=== PATIENT | female | born 1990 ===

== ENCOUNTER 2024-06-12 11:27 | Outpatient (CLI) | payer OTHER ==
[~2024-06-12 11:27] MED LIST: PRENATAL CAPLE1 EACH PO
== END 2024-06-12 11:31 | disposition home or self-care (01) ==
LOC: PRENATAL 11:27
PROVIDERS: ATTEND Obstetrics & Gynecology Maternal & Fetal Medicine
DX: O35.3XX0 Maternal care for (suspected) damage to fetus from viral disease in mother, not applicable or unspecified (principal); O44.00 Complete placenta previa NOS or without hemorrhage, unspecified trimester; O99.280 Endocrine, nutritional and metabolic diseases complicating pregnancy, unspecified trimester; Z3A.21 21 weeks gestation of pregnancy

== ENCOUNTER 2024-08-28 13:12 | Outpatient (CLI) | payer OTHER | END 2024-08-28 13:14 | disposition home or self-care (01) | LOC: PRENATAL 13:12 | PROVIDERS: ATTEND Obstetrics & Gynecology Maternal & Fetal Medicine | DX: O26.849 Uterine size-date discrepancy, unspecified trimester (principal); O36.8199 Decreased fetal movements, unspecified trimester, other fetus; O99.280 Endocrine, nutritional and metabolic diseases complicating pregnancy, unspecified trimester; Z3A.33 33 weeks gestation of pregnancy ==

== ENCOUNTER 2024-10-18 08:50 | Inpatient (IN) | payer OTHER ==
[~2024-10-18] VITALS: Ht 160 cm; Wt 71.7 kg
[2024-10-18 09:04] VITALS: BP 105/70
[2024-10-18] MEDS ORDERED: SYNTHROID75 MCG PO (10:13)
[2024-10-18] MEDS ORDERED: IRON240 MG PO (10:13)
[2024-10-18] MEDS ORDERED: RINGERS SOLUTION,LACTATED 1,000 ML IV SCH ×2 (10:15→23:15)
[2024-10-18 10:18] LABS: HEMATOCRIT 30.8 % (36.0-45.00); HEMOGLOBIN 11.2 g/dL (12.0-15.00); MEAN CELL VOLUME 88.6 fL (80.00-100.00); MEAN CORPUSCULAR HEMOGLOBIN 32.1 pg (27.00-32.0); MEAN CORPUSCULAR HGB CONC 36.2 g/dl (32.0-36.0); PLATELET COUNT 225 K/uL (150-450); RED BLOOD COUNT 3.48 M/uL (4.00-6.00); RED CELL DISTRIBUTION WIDTH 13.9 % (11.5-14.5)
[2024-10-18 10:22] LABS: PH,URINE 6.5 (5.0-8.0); URINE APPEARANCE Cloudy; URINE BILIRRUBIN Negative (NEGATIVE); URINE BLOOD Trace; URINE COLOR Yellow; URINE GLUCOSE Negative (NEGATIVE); URINE KETONE Negative (NEGATIVE); URINE LEUKOCYTE Small; URINE NITRATE Negative; URINE PROTEIN Negative (NEGATIVE); URINE UROBILINOGEN 0.2 E.U./dl
[2024-10-18 10:28] LABS: URINE BACTERIA 7790.4 uL (0.0-1933); URINE RBC 5.5 uL (0.0-20.8); URINE WBC 59.6 uL (0.0-23.2)
[2024-10-18] MEDS ORDERED: OXYTOCIN 20 UNITS/500ML RL PIGGYBAG IV SCH (10:30)
[2024-10-18 10:50] LABS: INR 0.97; PARTIAL THROMBOPLASTIN TIME 33.2 SECONDS (22.0-34.0); PROTHROMBIN TIME 10.6 SECONDS (9.0-11.5)
[2024-10-18 11:10] LABS: URINE CAST 0.88 uL (0.0-1.40); URINE EPITHELIAL CELLS > 201.7 uL (0.0-38.8)
[2024-10-18 11:27] VITALS: BP 92/60
[2024-10-18 15:13] VITALS: BP 114/57
[2024-10-18] MEDS ORDERED: MEPERIDINE HCL/PF 25 MG/ML VIAL IV STA (18:08)
[2024-10-18] MEDS ORDERED: PROMETHAZINE HCL 25 MG/ML AMPUL IV STA (18:08)
[2024-10-18 19:46] VITALS: BP 123/72
[2024-10-18] MEDS ORDERED: NALOXONE HCL 0.4 MG/ML AMPUL ONE (21:26)
[2024-10-18] MEDS ORDERED: NALOXONE HCL 0.4 MG/ML AMPUL IV ONE (21:30)
[2024-10-18] MEDS ORDERED: ERYTHROMYCIN BASE OPHT 1GM EACH TUBE OP ONE (21:34)
[2024-10-18] MEDS ORDERED: OXYTOCIN 10 UNITS/ML VIAL ONE (21:34)
[2024-10-18] MEDS ORDERED: KETOROLAC TROMETHAMINE 60 MG VIAL IM STA (23:10)
[2024-10-18] MEDS ORDERED: CHLORHEXIDINE GLUCONATE 120 ML BOTTLE TP SCH (23:15)
[2024-10-18] MEDS ORDERED: OXYTOCIN 1,000 ML IV SCH (23:15)
[2024-10-19 00:40] LABS: HEMATOCRIT 33.6 % (36.0-45.00); MEAN CELL VOLUME 88.9 fL (80.00-100.00); MEAN CORPUSCULAR HGB CONC 34.8 g/dl (32.0-36.0); PLATELET COUNT 242 K/uL (150-450); RED BLOOD COUNT 3.79 M/uL (4.00-6.00); RED CELL DISTRIBUTION WIDTH 14.2 % (11.5-14.5)
[2024-10-19 00:41] LABS: HEMOGLOBIN 11.7 g/dL (12.0-15.00); MEAN CORPUSCULAR HEMOGLOBIN 30.8 pg (27.00-32.0)
[2024-10-19] MEDS ORDERED: MORPHINE SULFATE 2 MG/ML CARTRIDGE IV ONE (01:20)
[2024-10-19] MEDS ORDERED: KETOROLAC TROMETHAMINE 60 MG VIAL IM ONE (02:20)
[2024-10-19 03:34] VITALS: BP 108/63; O2SAT 95
[2024-10-19] MEDS ORDERED: OxyCODONE HCL/APAP UD (PERCOCET) PO PRN (09:00)
[2024-10-19] MEDS ORDERED: IBUprofen 600 MG TABLET PO PRN (13:45)
[2024-10-19] MEDS ORDERED: BISACODYL 10 MG/SUPP.RECT SUPP.RECT RECTAL STA (14:50)
[2024-10-19 16:14] VITALS: BP 115/62
[2024-10-20] VITALS: BP 96/60
[2024-10-20] MEDS ORDERED: LEVOTHYROXINE SODIUM 75 MCG TABLET PO SCH (06:00)
[2024-10-20 08:40] VITALS: BP 100/62
[2024-10-20 13:10] VITALS: BP 107/66
[2024-10-20 17:47] VITALS: BP 104/61
[2024-10-20 21:50] VITALS: BP 102/61
[2024-10-21 00:20] VITALS: BP 97/61
[2024-10-21 08:00] VITALS: BP 114/75
== END 2024-10-21 17:29 | disposition home or self-care (01) | DRG 788 ==
LOC: O/R 08:50 → LDR 08:50 → O/R 23:04 → OB/GYN 23:59
PROVIDERS: ADMIT Obstetrics & Gynecology; ATTEND Obstetrics & Gynecology
PROC: 4A1HXCZ Monitoring of Products of Conception, Cardiac Rate, External Approach (ICD-10-PCS; 2024-10-18)
PROC: 10D00Z1 Extraction of Products of Conception, Low, Open Approach (ICD-10-PCS; principal; 2024-10-19)
DX: O82 Encounter for cesarean delivery without indication (principal); O62.0 Primary inadequate contractions; O64.0XX0 Obstructed labor due to incomplete rotation of fetal head, not applicable or unspecified; Z3A.39 39 weeks gestation of pregnancy; Z37.0 Single live birth